=== PATIENT | female | born 1955 | race Caucasian/White ===

== ENCOUNTER → 2016-06-29 | Outpatient (CLI) | payer OTHER, BC | LOC: CIMAGING 15:45 | PROVIDERS: ATTEND Physician Assistant Surgical | DX: Z09 Encounter for follow-up examination after completed treatment for conditions other than malignant neoplasm (principal); Z98.1 Arthrodesis status; M50.31 Other cervical disc degeneration, high cervical region | CPT/HCPCS: 72050-PO ==

== ENCOUNTER 2016-08-01 08:46 | Observation (INO) | payer BC ==
[~2016-08-01 08:46] MED LIST: BUPIVACAINE/EPI 0.5% 30 ML SDV ONE; CLINDAMYCIN 900 MG/DEXTROSE 50 ML IV ONE; LR 1,000 ML IV ONE; PHENAZOPYRIDINE HCL 200 MG TAB PO ONE; PROPOFOL/EMULSION 500 MG/50 ML BOTTLE IV ONE; SKIN ADHESIVE (DERMABOND) 1 EACH TP ONE; fentaNYL 250 MCG/5 ML INJ ONE; levOFLOXACIN 500 MG/DEXTROSE 100 ML IV ONE
[2016-08-01] MEDS ORDERED: LIDOCAINE 1% 5 ML SDV ID PRN (09:21)
[2016-08-01] MEDS ORDERED: LR 1,000 ML IV ONE (09:21)
[2016-08-01] MEDS ORDERED: levOFLOXACIN 500 MG/DEXTROSE/100 ML BAG IV ONE (09:24)
[2016-08-01] MEDS ORDERED: LIDOCAINE 1% 2 ML INJ ONE (09:25)
[2016-08-01] MEDS ORDERED: CLINDAMYCIN 900 MG/DEXTROSE/50 ML BAG IV ONE (09:25)
[2016-08-01] MEDS ORDERED: PHENAZOPYRIDINE HCL 200 MG TAB ONE (09:25)
[2016-08-01] MEDS ORDERED: MIDAZOLAM 2 MG/2 ML VIAL ONE (09:57)
[2016-08-01] MEDS ORDERED: SUCCINYLCHOLINE CHLORIDE*ANESTHESIA ONLY*200 MG/10 ML SYR IVP ONE (11:01)
[2016-08-01] MEDS ORDERED: DEXAMETHASONE 4 MG/ML VIAL ONE (11:01)
[2016-08-01] MEDS ORDERED: ROCURONIUM 50 MG/5 ML VIAL ONE (11:01)
--- NOTE | 2016-08-01 11:53 | POSTOPPROG ---
Post Op Note Date of Operation: 08/01/16 Surgeon: Mj Lee [employer] Operator: Sil Tabor Anesthesia: GET(General Endotracheal) Pre-op Diagnosis: Post menopausal bleeding Post-op Diagnosis: Same Procedure: Robotic hyst, BSO, US Lig colpopexy, cyst, left ureterolysis Findings: Ureters function at end of case Inf/Abcess present in the surg proc area at time of surgery?: No EBL: Minimal Complications: None Specimen(s): Uterus, tubes, and ovaries
[2016-08-01] MEDS ORDERED: HYDROmorphONE/DILAUDID 1 MG/ML SYR ONE ×2 (12:02→12:50)
[2016-08-01] MEDS ORDERED: fentaNYL 100 MCG/2 ML INJ ONE ×2 (12:02→12:22)
[2016-08-01] MEDS ORDERED: oxyCODONE IR 5 MG TAB PO PRN (12:07)
[2016-08-01] MEDS ORDERED: ONDANSETRON 4 MG/2 ML VIAL IVP PRN (12:08)
[2016-08-01] MEDS ORDERED: ONDANSETRON 4 MG/2 ML VIAL ONE (12:08)
[2016-08-01] MEDS ORDERED: LR 1,000 ML IV SCH (12:30)
[2016-08-01 13:08] VITALS: RESP 16
[2016-08-01] MEDS ORDERED: KETOROLAC 30 MG/1 ML SDV ONE (13:18)
[2016-08-01 15:09] VITALS: BP 150/79; PULSE 71; TEMP 97.2; O2SAT 95
[2016-08-01] MEDS ORDERED: CARISOPRODOL 350 MG TAB PO SCH (16:00)
[2016-08-01] MEDS ORDERED: oxyCODONE CR 80 MG TAB PO SCH (16:00)
[2016-08-01] MEDS ORDERED: KETOROLAC 30 MG/1 ML SDV IVP SCH (18:00)
--- NOTE | 2016-08-01 22:12 | GOP ---
[f rep st] OPERATIVE REPORT DATE OF OPERATION: 08/01/2016 SURGEON: Mj Lee MD SEISMIC PROSPECTING SUPERVISOR: Sil Tabor CFA ANESTHESIA: General. PREOPERATIVE DIAGNOSIS: 1. Postmenopausal bleeding. 2. History of endometriosis and multiple laparoscopies. 3. Uterine prolapse. POSTOPERATIVE DIAGNOSIS: 1. Postmenopausal bleeding. 2. History of endometriosis and multiple laparoscopies. 3. Uterine prolapse. PROCEDURE PERFORMED: FINDINGS: SPECIMENS: Uterus, cervix, bilateral tubes and ovaries. ESTIMATED BLOOD LOSS: Scant. DESCRIPTION OF PROCEDURE: The patient was taken to the operating room where she was identified. Ge neral anesthesia was administered and found to be adequate. She was placed in the lithotomy positio n and prepared and draped in normal sterile fashion. A [employer] uterine manipulator was placed into th e endometrial cavity and sutured to the cervix. A Browne catheter was then placed. A 1 cm infraumbilical incision was made with a scalpel. The Veress needle with a CO2 gas flowing wa s advanced into the peritoneal cavity. The abdomen was then insufflated with carbon dioxide gas. T he 12 mm trocar followed by the laparoscope were then inserted. The upper abdomen was unremarkable. Two lateral ports were placed, one on the right, one on the left, under direct visualization. The patient was then placed in Trendelenburg position and the da Ebony robot docked on the left side. The instruments were then brought into the abdominal cavity under direct visualization. The left round ligament was divided. The anterior leaf of the broad ligament was incised toward the bifurcation of the left common iliac vessels. A window was created in the medial leaf to skeletoni ze the infundibulopelvic vessels. They were then cauterized and transected. The anterior leaf of t he broad ligament was then incised over the left uterine vessels and across the cervix. The bladder was gently dissected off the cervix and upper vagina. The patient had a history of endometriosis w ith multiple surgeries. The left ureter was pulled medially against the edge of the cervix. To pre vent ureteral injury, a left ureterolysis was required. The retroperitoneum was dissected to identi fy the ureter. The ureter was gently dissected free and lateralize away from the medial peritoneum. The dissection was carried all the way down to the bladder. In doing this, the left uterine arter y was skeletonized and isolated. It was coagulated and transected just above and lateral to the lef t ureter. Once this was accomplished, I was able to lateralize the ureter further away from the cer vix out of harm's way. A similar procedure was performed on the patient's right side. However, no ureterolysis was require d. The right uterine artery was then coagulated and transected. Once the bladder was safely dissec sacha down to the upper vagina, a circumferential colpotomy incision was then made with the hot christopher . These specimens were then removed through the vagina. The vaginal cuff was then closed with a ru nning suture of 0 V-Loc 180. A bilateral uterosacral ligament colpopexy was performed by attaching the lateral aspects of the vaginal cuff to the ipsilateral uterosacral ligaments near their insertio n into the coccygeal-sacrospinous ligament complexes. The pelvis was then irrigated with sterile sa line and hemostasis was present. The robot was then undocked. The fascia was closed with 0 Vicryl. Skin with 4-0 Monocryl and surgical adhesive. Cystoscopy was then performed. Both ureters had vigorous jets of urine. There was no evidence of b ladder nor urethral injury seen. No obvious pathology was seen. Anesthesia was reversed and the pa tient taken to the PACU awake, in stable condition. PROCEDURES: 1. Robotic-assisted total laparoscopic hysterectomy, bilateral salpingo-oophorectomy. 2. Left ureterolysis. 3. Bilateral uterosacral ligament colpopexy. 4. Cystoscopy. COMPLICATIONS: None. DISPOSITION: Patient stable to PACU. /[id number]/MODL
[2016-08-02] MEDS ORDERED: ESTRADIOL VIVELLE 0.05 MG PATCH TD SCH (08:00)
--- NOTE | 2016-08-02 08:33 | GDS ---
[f rep st] DISCHARGE SUMMARY DISCHARGE DIAGNOSES: 1. Postmenopausal bleeding. 2. Uterine prolapse. PROCEDURES: 1. Robotic-assisted total laparoscopic hysterectomy, bilateral salpingo-oophorectomy. 2. Left ureterolysis. 3. Bilateral uterosacral ligament colpopexy. 4. Cystoscopy. HISTORY: The patient is a 60-year-old female with persistent postmenopausal bleeding. She was take n to the operating room on 08/01/2016 where she underwent the above-mentioned procedures without com plications. Postoperatively she did excellent. Several hours after surgery she was ambulating, voi ding, and tolerating a general diet. She was discharged home on the same day of surgery in stable c ondition. She was to remain on her normal outpatient chronic pain management regimen. She is to fo llow up in the office 2 weeks after discharge. /[id number]/MODL
== END 2016-08-01 16:05 | disposition home or self-care (01) ==
LOC: INTOOBSV 08:46 → F3E 08:46 → FOB 13:56
PROVIDERS: ADMIT Obstetrics & Gynecology; ATTEND Obstetrics & Gynecology
PROC: 0UT7FZZ Resection of Bilateral Fallopian Tubes, Via Natural or Artificial Opening With Percutaneous Endoscopic Assistance (ICD-10-PCS; principal; 2016-08-01 10:15)
PROC: 0UT9FZZ Resection of Uterus, Via Natural or Artificial Opening With Percutaneous Endoscopic Assistance (ICD-10-PCS; principal; 2016-08-01 10:15)
PROC: 0UTC7ZZ Resection of Cervix, Via Natural or Artificial Opening (ICD-10-PCS; principal; 2016-08-01 10:15)
PROC: 8E0W4CZ Robotic Assisted Procedure of Trunk Region, Percutaneous Endoscopic Approach (ICD-10-PCS; principal; 2016-08-01 10:15)
DX: N95.0 Postmenopausal bleeding (principal)
CPT/HCPCS: J0330; J1100; J1170; J1885; J1956; J2250; J2405; J2704; J3010